=== PATIENT | male | born 2000 | race Caucasian/White ===

== ENCOUNTER 2021-08-30 19:44 | Inpatient (IN) | payer BC ==
[~2021-08-30] VITALS: Ht 190.5 cm; Wt 109.6 kg
--- NOTE | 2021-08-30 19:53 | PHYS DOC ---
General Adult HPI: HPI: ".. I ve been sick a few days.. I got diagnosis of COVID on.. I did get the flu vaccine.. I did n't get the COVID ,, I didnt think I needed.. it. ",, " But I am no better.." Patient is a 21 year old male who presents with nausea, vomiting, is, arthralgia, myalgia, fevers, cough, wheezing, and recent positive Covid infection. Patient has had flu vaccination. No recent travel. No significant ill contacts. Denies any history immunosuppression. Pt. follows with [facility] for [facility]. Patient reports a somewhat constant nagging uncontrollable cough and continued shortness of breath with his Covid infection. Is currently on amoxicillin and steroids with no improvement. Patient noted to be hypoxic on room air. Review of Systems: Review of Systems: Constitutional: History of fever or chills Eyes: Denies change in visual acuity HENT: History of nasal congestion Respiratory: History of cough or shortness of breath Cardiovascular: Denies chest pain or edema GI: Denies abdominal pain, nausea, vomiting, bloody stools or diarrhea : Denies dysuria Musculoskeletal: History of generalized myalgia and arthralgia Integument: Denies rash Neurologic: Denies headache, focal weakness or sensory changes Endocrine: Denies polyuria or polydipsia Lymphatic: Denies swollen glands Psychiatric: Denies depression or anxiety Family History: Family History: Noncontributory to presentation Current Medications: Current Meds: See nursing for home meds Allergies: Allergies: Clindamycin allergy Physical Exam: PE: Constitutional: moderate acute distress, non-toxic appearance. [] HENT: Normocephalic, atraumatic, bilateral external ears normal, oropharynx dry, no oral exudates, nose swollen turbinates and clear rhinorrhea. Eyes: PERRLA, EOMI, conjunctiva normal, no discharge. Glasses Neck: Normal range of motion, no tenderness, supple, no stridor. [] Cardiovascular: Tachycardia heart rate regular rhythm, no murmur [] Lungs & Thorax: Bilateral breath sounds to apex with scattered wheezes throughout on auscultation []. Left lower lobe bronchi. Basilar crackles. Persistent cough. Abdomen: Bowel sounds normal, soft, no tenderness, no masses, no pulsatile masses. [] Skin: Warm, dry, no erythema, no rash. [] Back: No tenderness, no CVA tenderness. [] Extremities: No tenderness, no cyanosis, no clubbing, ROM intact, no edema. No cording appreciated Neurologic: Alert and oriented X 3, normal motor function, normal sensory function, no focal deficits noted. [] Psychologic: Affect anxious, judgement normal, mood normal. [] EKG: EKG: My interpretation of patient's EKG shows a sinus rate at 78 bpm. No findings of acute STEMI of contralateral changes. Time of EKG is 2031 hrs. [] Radiology/Procedures: Radiology/Procedures: [][address] [address] IMAGING REPORT Signed PATIENT: TARA TURNERUNT: [id number] : 2000 LOCATION: ER AGE: 21 SEX: M EXAM STATUS: PRE ER ORD. PHYSICIAN: JESSICA ACEVEDO MD REASON: nv, covid PROCEDURE: ACUTE ABDOMEN SERIES Three-view acute abdominal series. HISTORY: Nausea and vomiting, Covid AP view was taken of the chest. There are bilateral infiltrates consistent with Covid pneumonia most prominent in the left lower lobe. There is no free air on the upright chest. Heart is normal in size. There is no effusion. Bowel pattern is normal without bowel obstruction. There are no abnormal calcifications. IMPRESSION: 1. Bilateral infiltrates consistent with Covid pneumonia. 2. Bowel pattern unremarkable without bowel obstruction or acute finding. Electronically signed by: Angel Luis Schultz MD (08/30/2021 9:28 PM) [facility] DICTATED AND SIGNED BY: ANGEL LUIS SCHULTZ MD DATE: 08/30/212125 CC: JESSICA ACEVEDO MD; SUKUMARSAHRA Srini [facility] ~MTH0 [address] [address] IMAGING REPORT Signed PATIENT: TARA TURNERUNT: [id number] : 2000 LOCATION: ER AGE: 21 SEX: M EXAM STATUS: PRE ER ORD. PHYSICIAN: JESSICA ACEVEDO MD REASON: dispnea, covid +, OMNI 350, 100ml PROCEDURE: CT ANGIOGRAPHY CHEST CT arteriogram of the chest. HISTORY: Dyspnea, Covid positive CT arteriogram of the chest was done using 100 mL Omnipaque 350 contrast. Sagittal and coronal MIP images were reconstructed. Thyroid is homogeneous. Bilateral hilar and right subcarinal nodes are prominent. Study is negative for evidence of a pulmonary embolus. There are bilateral infiltrates most prominent in the lung bases more on the left than on the right. Infiltrates are consistent with Covid pneumonia. There is no pneumothorax. Visualized portions of the liver are unremarkable. Spleen is generous in size. Motion artifact mildly limits the study. Adrenal glands are normal. IMPRESSION: 1. Bilateral infiltrates consistent with Covid 19 pneumonia most prominent left lower lobe. 2. Negative for a pulmonary embolus. 3. Mild adenopathy. RS Compliance Statement: One or more of the following individualized dose reduction techniques were utilized for this examination: 1. Automated exposure control 2. Adjustment of the mA and/or kV according to patient size 3. Use of iterative reconstruction technique Electronically signed by: Angel Luis Schultz MD (08/30/2021 9:25 PM) [facility] DICTATED AND SIGNED BY: ANGEL LUIS SCHULTZ MD DATE: 08/30/212120 CC: JESSICA ACEVEDO MD; [facility] PAT[facility] ~MTH0 0 Heart Score: C/O Chest Pain: No HEART Score for Chest Pain: HEART Score for Chest Pain Response (Comments) Value History Slighlty/Non-Suspicious 0 ECG Normal 0 Age < 45 0 Risk Factors No Risk Factors 0 Troponin < Normal Limit 0 Total 0 Risk Factors: Risk Factors: DM, Current or recent (<one month) smoker, HTN, HLP, family history of CAD, obesity. Risk Scores: Score 0 - 3: 2.5% MACE over next 6 weeks - Discharge Home Score 4 - 6: 20.3% MACE over next 6 weeks - Admit for Clinical Observation Score 7 - 10: 72.7% MACE over next 6 weeks - Early Invasive Strategies Course & Med Decision Making: Course & Med Decision Making Pertinent Labs and Imaging studies reviewed. (See chart for details) After discussions with patient, and his mother with pt. consent. They elected to be admitted here. Mother very insistent he not get Remdesivir.. Discussed patient's presentation testing and treatment plan with Dr. Frankel. Admit to his service. Impression: 1. COVID Pneumonia- Dx 2. Respiratory Failure - Hypoxia 3. Leukopenia 3.6 4. Thrombocytopenia 129 5. Elevated D-dimer 1.85 6. Elevated LFT's AST 88, ALT 103, Alk Phos 44 7. Elevated CK 354 [] Pierre Disclaimer: Pierre Disclaimer: This electronic medical record was generated, in whole or in part, using a voice recognition dictation system. Departure Departure: Referrals: SAHRA PATINO (PCP) JESSICA ACEVEDO MD Aug 30, 2021 19:53
[2021-08-30] MEDS ORDERED: IV RINGERS SOLUTION,LACTATED 1,000 ML IV SCH (20:00)
[2021-08-30] MEDS ORDERED: ASPIRIN CHEWABLE 81 MG TABLET. PO ONE (20:00)
[2021-08-30] MEDS ORDERED: ALBUTEROL SULFATE 8GM INHALER. INH ONE (20:00)
[2021-08-30] MEDS ORDERED: ONDANSETRON PF 4 MG/2 ML VIAL. IVP ONE (20:00)
[2021-08-30] MEDS ORDERED: IOHEXOL 350 MG/ML 100 ML VIAL. IV ONE (20:15)
[2021-08-30 21:05] LABS: BASO % 0 % (0-3); EOS % 0 % (0-3); HEMATOCRIT 42.8 % (39.0-53.0); HEMOGLOBIN 15.2 g/dL (13.0-17.5); LYMPH # 0.7 x10^3/uL (1.0-4.8); LYMPH % 20 % (24-48); MEAN CORPUSCULAR HEMOGLOBIN 29 pg (25-35); MEAN CORPUSCULAR HGB CONC 35 g/dL (31-37); MEAN CORPUSCULAR VOLUME 83 fL (79-100); MONO # 0.4 x10^3/uL (0.0-1.1); MONO % 12 % (0-9); NEUT # 2.4 x10^3uL (1.8-7.7); NEUT % 67 % (31-73); PLATELET COUNT 129 x10^3/uL (140-400); RED BLOOD COUNT 5.19 x10^6/uL (4.30-5.70); RED CELL DISTRIBUTION WIDTH 13.1 % (11.5-14.5); WHITE BLOOD COUNT 3.6 x10^3/uL (4.0-11.0)
[2021-08-30 21:07] LABS: AMPHETAMINE/METHAMPHETAMINE NEG (NEG); BARBITURATES NEG (NEG); BENZODIAZEPINES NEG (NEG); CANNABINOIDS NEG (NEG); COCAINE NEG (NEG); METHADONE NEG (NEG); OPIATES NEG (NEG); PHENCYCLIDINE NEG (NEG)
[2021-08-30 21:08] LABS: CALCIUM 8.6 mg/dL (8.5-10.1); GFR 95.3
[2021-08-30 21:09] LABS: BACTERIA,URINE 0 /HPF (0-FEW); BILIRUBIN,URINE NEG (NEG); CLARITY,URINE CLEAR; COLOR,URINE YELLOW; GLUCOSE,URINE NEG (NEG); NITRITE,URINE NEG (NEG); RBC,URINE 0 /HPF (0-2); SQUAMOUS EPITHELIAL CELL,UR FEW /LPF; WBC,URINE 0 /HPF (0-4)
[2021-08-30 21:23] LABS: ALBUMIN 3.8 g/dL (3.4-5.0); DIRECT BILIRUBIN 0.4 mg/dL (0.0-0.2); MAGNESIUM 2.8 mg/dL (1.8-2.4); TOTAL BILIRUBIN 0.9 mg/dL (0.2-1.0); TOTAL PROTEIN 7.4 g/dL (6.4-8.2)
--- NOTE | 2021-08-30 21:27 | RAD ---
CT arteriogram of the chest. HISTORY: Dyspnea, Covid positive CT arteriogram of the chest was done using 100 mL Omnipaque 350 contrast. Sagittal and coronal MIP im ages were reconstructed. Thyroid is homogeneous. Bilateral hilar and right subcarinal nodes are promi nent. Study is negative for evidence of a pulmonary embolus. There are bilateral infiltrates most pro minent in the lung bases more on the left than on the right. Infiltrates are consistent with Covid pn eum[place]. There is no pneumothorax. Visualized portions of the liver are unremarkable. Spleen is gener ous in size. Motion artifact mildly limits the study. Adrenal glands are normal. IMPRESSION: 1. Bilateral infiltrates consistent with Covid 19 pneumonia most prominent left lower lobe. 2. Negative for a pulmonary embolus. 3. Mild adenopathy. PQRS Compliance Statement: One or more of the following individualized dose reduction techniques were utilized for this examinat ion: 1. Automated exposure control 2. Adjustment of the mA and/or kV according to patient size 3. Use of iterative reconstruction technique Electronically signed by: Angel Luis Schultz MD (08/30/2021 9:25 PM) [facility]
--- NOTE | 2021-08-30 21:30 | RAD ---
Three-view acute abdominal series. HISTORY: Nausea and vomiting, Covid AP view was taken of the chest. There are bilateral infiltrates consistent with Covid pneumonia most prominent in the left lower lobe. There is no free air on the upright chest. Heart is normal in size. There is no effusion. Bowel pattern is normal without bowel obstruction. There are no abnormal calci fications. IMPRESSION: 1. Bilateral infiltrates consistent with Covid pneumonia. 2. Bowel pattern unremarkable without bowel obstruction or acute finding. Electronically signed by: Angel Luis Schultz MD (08/30/2021 9:28 PM) [facility]
--- NOTE | 2021-08-30 22:23 | EKG ---
[facility] ED [facility] [address] [place] [id number] Test Date: 2021-08-30 Test Time: 20:32:43 Pat Name: TARA TURNER Department: Room: Gender: Rail Engineer: 8 : 2000 Requested By: JESSICA ACEVEDO Order Number: [id number] Reading MD: Devante Villasenor Measurements Intervals [place] Rate: 78 P: 41 AK: 146 QRS: 39 QRSD: 94 T: 27 QT: 372 QTc: 428 Interpretive Statements SINUS RHYTHM NORMAL ECG RI6.02 No previous ECG available for comparison Electronically Signed On 08-31-2021 7:12:30 [employer] by Devante Villasenor
[2021-08-31] VITALS (7 sets, daily range): BP systolic 16–154; BP diastolic 66–87
[2021-08-31] MEDS ORDERED: ACETAMINOPHEN 325 MG TABLET PO PRN
[2021-08-31] MEDS ORDERED: ONDANSETRON PF 4 MG/2 ML VIAL. IVP PRN
[2021-08-31] MEDS ORDERED: AZITHROMYCIN 250 MG TABLET. PO ONE
[2021-08-31] MEDS ORDERED: ANTI-COAG MONITOR BY PHARMACY. MC PRN (00:15)
[2021-08-31] MEDS: APIXABAN 5 MG TABLET. PO SCH ×2 (00:19→10:06)
--- NOTE | 2021-08-31 00:35 | NUR ---
Admitted to ICU Rm 1 in stable cond via EMS from ED; VSS, Sats 94% on 2L O2 via nasal canula; A&Ox4, room orientation given and plan of care discussed, verbalized understanding.
[2021-08-31] MEDS: ALBUTEROL SULFATE 8GM INHALER. INH SCH ×7 (04:00→23:55)
[2021-08-31 08:57] LABS: BASO % 0 % (0-3); EOS % 1 % (0-3); HEMATOCRIT 41.7 % (39.0-53.0); HEMOGLOBIN 14.3 g/dL (13.0-17.5); LYMPH # 1.6 x10^3/uL (1.0-4.8); LYMPH % 39 % (24-48); MEAN CORPUSCULAR HEMOGLOBIN 29 pg (25-35); MEAN CORPUSCULAR HGB CONC 34 g/dL (31-37); MEAN CORPUSCULAR VOLUME 84 fL (79-100); MONO # 0.6 x10^3/uL (0.0-1.1); MONO % 14 % (0-9); NEUT % 47 % (31-73); PLATELET COUNT 98 x10^3/uL (140-400); RED BLOOD COUNT 4.97 x10^6/uL (4.30-5.70); RED CELL DISTRIBUTION WIDTH 13.3 % (11.5-14.5); WHITE BLOOD COUNT 4.2 x10^3/uL (4.0-11.0)
[2021-08-31 09:00] LABS: CALCIUM 8.4 mg/dL (8.5-10.1); CREATININE 0.9 mg/dL (0.7-1.3); GFR 107.6; POTASSIUM 3.8 mmol/L (3.5-5.1)
[2021-08-31] MEDS ORDERED: APIXABAN 5 MG TABLET. PO SCH (09:00)
[2021-08-31] MEDS: AZITHROMYCIN 250 MG TABLET. PO SCH (10:07)
[2021-08-31] MEDS ORDERED: DEXAMETHASONE SOD PHOS 10 MG/ML VIAL. IV ONE (13:00)
--- NOTE | 2021-08-31 13:31 | HP ---
DATE OF SERVICE: 08/31/2021 ADMIT DATE: 08/30/2021 HISTORY OF PRESENT ILLNESS: The patient is a 21-year-old male patient who presented to the Emergency Room, he apparently was diagnosed with COVID on 08/20. He apparently was seen about 5 days ago at Emergency Room of [facility], was given antibiotics and sent home. Apparently, he lives in [place], but he came in today with his mom in [place] and forgot his antibiotics and presented to the Emergency Room of [facility] as he continued to complain of nausea, vomiting, arthralgia, myalgia, fever, cough, wheezing and a recent positive COVID infection. He did receive his flu vaccination. No recent travel. No significant ill contact. He denies a history of immunosuppression. He reported somewhat constant nagging, uncontrollable cough and continued shortness of breath with his COVID infection. He was started on amoxicillin and steroids with no improvement and he was noted to be hypoxic on room air. He was seen in the Emergency Room and was extensively investigated and has had lab work as well as imaging studies. His lab work showed his white cell count to be low at 3.6 and has also thrombocytopenia with a platelet count of only 129. His D-dimer was high at 1.85. His chemistry has also showed that he has transaminitis. Urinalysis was essentially unremarkable and toxic screen was negative. His acute abdomen series showed bilateral infiltrate consistent with COVID pneumonia, has bowel and bladder unremarkable without bowel obstruction or acute finding. Given his elevated D-dimer, he underwent CT angio, which showed no evidence of pulmonary emboli; however, he has bilateral infiltrates consistent with COVID-19 pneumonia, most prominent in the left lower lobe. He also had mild adenopathy. He was started on azithromycin and albuterol and was admitted for further evaluation and treatment. PAST MEDICAL HISTORY: Unremarkable. PAST SURGICAL HISTORY: Unremarkable. ALLERGIES: HE IS ALLERGIC TO CLINDAMYCIN. MEDICATIONS: He is currently on no medication except what was described to him at [facility]. FAMILY HISTORY: Noncontributory. 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 He does not drink, smoke cigarettes or use any drugs. REVIEW OF SYSTEMS: As per history of present illness. PHYSICAL EXAMINATION: GENERAL: On arrival to the Emergency Room, he looked well and was clearly in no apparent respiratory distress. There was no pallor, jaundice, cyanosis, lymphadenopathy or thyromegaly. No jugular venous distention. No lower limb edema. VITAL SIGNS: His heart rate was 101, blood pressure was 160/103, temperature was 98.4, respiratory rate was 18 and oxygen saturation was 90% on room air. HEAD, EYES, EARS, NOSE, AND THROAT: Normocephalic, atraumatic. NECK: Supple. HEART: Showed normal first and second heart sounds. No gallop, rub or murmur. CHEST: Shows central trachea, equal bilateral chest expansion, air entry, vesicular breath sounds with bilateral basal crepitation, more so on the left than right, though I could not appreciate any rhonchi. ABDOMEN: Distended, soft, nontender. NEUROLOGIC: He was grossly intact. LABORATORY DATA: On admission showed a white cell count of 3600, hemoglobin 15, hematocrit 43, MCV 83 and platelet count of 129,000 with manual differential shows 67% polymorphs, 20% lymphocytes, 12% monocytes. His prothrombin time, INR and APTT were normal. D-dimer was 1.85. His chemistry showed a serum sodium 138, potassium 4, chloride 98, bicarbonate 30, anion gap of 10, BUN 10, creatinine 1. Estimated GFR was 95 mL per minute. His glucose was 129, calcium was 8.6, magnesium 2.8, total bilirubin was 0.9. AST and ALT elevated. Alkaline phosphatase normal. CK was 354. Beta natriuretic peptide was 108. Total protein was 7.4, albumin was 3.8, lipase was 99. His urinalysis essentially unremarkable and toxic screen was negative. ASSESSMENT AND PLAN: The patient was admitted with COVID-19 pneumonia and with possible superimposed community-acquired pneumonia as well as acute hypoxic respiratory failure. Plan is to continue with IV antibiotic in the form of ceftriaxone and Zithromax. Continue with dexamethasone. Continue with Lovenox. We will follow his labs on a daily basis and decide on further management accordingly. JENNY DR: Kalpana TID: [id number]
[2021-08-31] MEDS: ENOXAPARIN 40 MG/0.4 ML SYRINGE. SQ SCH (14:55)
[2021-09-01] MEDS: ALBUTEROL SULFATE 8GM INHALER. INH SCH ×5 (04:00→19:47)
[2021-09-01 05:58] VITALS: BP 148/77
[2021-09-01 06:26] LABS: BASO % 0 % (0-3); EOS % 0 % (0-3); HEMATOCRIT 44.7 % (39.0-53.0); HEMOGLOBIN 15.4 g/dL (13.0-17.5); LYMPH # 0.7 x10^3/uL (1.0-4.8); LYMPH % 15 % (24-48); MEAN CORPUSCULAR HEMOGLOBIN 29 pg (25-35); MEAN CORPUSCULAR HGB CONC 35 g/dL (31-37); MEAN CORPUSCULAR VOLUME 84 fL (79-100); MONO # 0.4 x10^3/uL (0.0-1.1); MONO % 10 % (0-9); NEUT # 3.4 x10^3uL (1.8-7.7); NEUT % 75 % (31-73); PLATELET COUNT 155 x10^3/uL (140-400); RED BLOOD COUNT 5.31 x10^6/uL (4.30-5.70); RED CELL DISTRIBUTION WIDTH 13.2 % (11.5-14.5); WHITE BLOOD COUNT 4.6 x10^3/uL (4.0-11.0)
[2021-09-01 06:39] LABS: ALBUMIN 3.5 g/dL (3.4-5.0); ALBUMIN/GLOBULIN RATIO 0.8 (1.0-1.7); CALCIUM 8.9 mg/dL (8.5-10.1); CREATININE 0.8 mg/dL (0.7-1.3); GFR 123.2; POTASSIUM 4.5 mmol/L (3.5-5.1); TOTAL BILIRUBIN 0.9 mg/dL (0.2-1.0); TOTAL PROTEIN 7.7 g/dL (6.4-8.2)
[2021-09-01] MEDS: AZITHROMYCIN 250 MG TABLET. PO SCH (08:02)
[2021-09-01] MEDS: DEXAMETHASONE SOD PHOS 4 MG/ML VIAL. IVP SCH (08:02)
--- NOTE | 2021-09-01 10:57 | NUR ---
Nursing note PT in bed, verbalized no pain or discomfort, medications administered, call light within reach, bed low.
[2021-09-01 11:52] VITALS: BP 137/78
[2021-09-01] MEDS: ENOXAPARIN 40 MG/0.4 ML SYRINGE. SQ SCH (13:33)
[2021-09-01 15:55] VITALS: BP 146/72
[2021-09-01 19:00] VITALS: BP 139/79
[2021-09-01] MEDS: LACTOBACILLUS RHAMNOSUS GG 1 CAPSULE. PO SCH (19:40)
--- NOTE | 2021-09-01 21:25 | PN ---
DATE: 09/01/2021 SUBJECTIVE: The patient was admitted yesterday with COVID-19 pneumonia as well as acute hypoxic respiratory failure, possible superimposed community-acquired pneumonia. He was started on IV antibiotic and Zithromax and remdesivir as well as dexamethasone. We did some blood cultures and unfortunately his blood culture has grown gram-positive cocci in clusters in 1 out of 4 bottles, 2 sets collected. The patient himself is feeling generally much improved. He has continued to be on room air, maintaining his oxygen saturation at 93-94%. PHYSICAL EXAMINATION: GENERAL: When I examined him this morning, he looked well and was clearly in no apparent respiratory distress. No pallor, jaundice, cyanosis or thyromegaly. No jugular venous distention. No lower limb edema. VITAL SIGNS: His heart rate was 82, blood pressure was 137/78, temperature was 97.7, respiratory rate was 18 and oxygen saturation was 94% on room air. HEAD, EYES, EARS, NOSE AND THROAT: Normocephalic, atraumatic. NECK: Supple. HEART: Normal first and second heart sounds. No gallop, rub or murmur. CHEST: Showed central trachea, equal bilateral chest expansion, air entry, vesicular breath sounds with crepitation mostly on the left side posteriorly. ABDOMEN: Soft, nontender. NEUROLOGIC: He was grossly intact. LABORATORY DATA: His lab work this morning showed a white cell count of 4600, hemoglobin 15, hematocrit 45, MCV 84 and platelet count of 155,000 with normal manual differential. His chemistry showed a serum sodium 140, potassium 4.5, chloride 103, bicarbonate 26, anion gap of 11, BUN 10, creatinine 0.8. Estimated GFR was 123 mL per minute. His glucose 111, calcium was 8.9. Total bilirubin is normal. AST, ALT, alkaline phosphatase were elevated. Total protein 7.7, albumin was 3.5. His D-dimer was 1.85. Urinalysis essentially unremarkable. Toxic screen was negative. ASSESSMENT: 1. COVID-19 pneumonia. 2. Possible superimposed community-acquired pneumonia. 3. Acute hypoxic respiratory failure. His blood culture has grown gram-positive cocci in clusters. PLAN: Plan is to continue with IV antibiotic. Continue with dexamethasone. Continue with Lovenox. Once we have the identity of the bacteria, he can be discharged home to continue on oral treatment. MARILIN DR: Kalpana TID: [id number]
[2021-09-01 23:00] VITALS: BP 131/70
[2021-09-02] MEDS: ALBUTEROL SULFATE 8GM INHALER. INH SCH ×4 (04:00→12:00)
[2021-09-02 05:00] VITALS: BP 132/73
[2021-09-02] MEDS: AZITHROMYCIN 250 MG TABLET. PO SCH (08:10)
[2021-09-02] MEDS: DEXAMETHASONE SOD PHOS 4 MG/ML VIAL. IVP SCH (08:10)
[2021-09-02] MEDS: LACTOBACILLUS RHAMNOSUS GG 1 CAPSULE. PO SCH (08:10)
[2021-09-02 10:49] VITALS: BP 137/78
[2021-09-02] MEDS: ENOXAPARIN 40 MG/0.4 ML SYRINGE. SQ SCH (12:29)
[2021-09-02 14:42] VITALS: BP 133/78
[2021-09-02] MEDS ORDERED: CEFD300C PO (15:08)
[2021-09-02] MEDS ORDERED: AZIT250T PO (15:08)
[2021-09-02] MEDS ORDERED: DEXA6TAB6 PO (15:08)
--- NOTE | 2021-09-02 15:56 | NUR ---
PATIENT IS DISCHARGED HOME, DISCHARGE INSTRUCTION REVIEWED, PATIENT VERBALIZED UNDERSTANDING. PATIENT LEFT ROOM VIA AMBUL ACCOMP BY SELF.
== END 2021-09-02 15:55 | disposition home or self-care (01) | DRG 177 ==
LOC: ER 19:44 → ICU 23:48 → 1 SOUTH 08-31 18:15
PROVIDERS: ADMIT Internal Medicine; ATTEND Internal Medicine
DX: U07.1 COVID-19 (principal); J12.82 Pneumonia due to coronavirus disease 2019; J96.01 Acute respiratory failure with hypoxia; D72.819 Decreased white blood cell count, unspecified; D69.6 Thrombocytopenia, unspecified
CPT/HCPCS: 36415; 71275; 74022; 80048; 80053; 80076; 80307; 81001; 82550; 83690; 83735; 83880; 84443; 84484; 85025; 85379; 85610; 85730; 87040; 87205; 93005; 94640; 96361; 96374; G0238; J0696; J1100; J1650; J2405; J7120; Q9967; 94664; 99285-25